=== PATIENT | female | born 1970 | race Caucasian/White ===

== ENCOUNTER 2025-04-07 14:07 | Emergency (ER) | payer MEDICAID, SELFPAY ==
[2025-04-07 14:08] VITALS: BMI 28.3
[2025-04-07 14:42] VITALS: BP 116/72; PULSE 89; RESP 18; TEMP 36.6; O2SAT 99
--- NOTE | 2025-04-07 14:56 | PD.EDDENTL ---
ED Dental RME/HPI General Chief complaint: Dental/Oral/Throat Stated complaint: RIGHT TOOTH PAIN x 4 DAYS Time Seen by Provider: 04/07/25 14:10 Source: patient Arrival date/time: 04/07/25 14:07 54-year-old female with no known medical history presents to the emergency room with a chief complaint of dental tenderness to the back right lower molars x 4 days Mode of arrival: ambulatory Limitations: no limitations Related Data Previous Rx's ?Medication ?Instructions ?Recorded meloxicam 7.5 mg tablet 7.5 mg PO QDAY #14 tabs 07/27/23 clindamycin HCl 300 mg capsule 300 mg PO TID 7 days #21 caps 04/07/25 Allergies Allergy/AdvReac Type Severity Reaction Status Date / Time No Known Allergies Allergy Verified 04/07/25 14:10 Review of Systems Review of Systems Systems Reviewed: All systems reviewed, normal except as documented Constitutional Constitutional: Reports system reviewed and no additional complaints, except as documented, Denies fatigue, Denies fever(s), Denies headache(s) and Denies weakness Eyes Eyes: Reports system reviewed and no additional complaints, except as documented, Denies blurry vision and Denies change in vision ENT Ears, Nose, Mouth, and Throat: Reports system reviewed and no additional complaints, except as documented, Reports dental pain, Denies otalgia, Denies headache(s), Denies nasal congestion, Denies throat swelling and Denies vertigo Cardiovascular Cardiovascular: Reports system reviewed and no additional complaints, except as documented, Denies chest pain, Denies dyspnea and Denies dyspnea on exertion Respiratory Respiratory: Reports system reviewed and no additional complaints, except as documented, Denies chest congestion, Denies cough, Denies dyspnea, Denies dyspnea on exertion and Denies wheezing Gastrointestinal Gastrointestinal: Reports system reviewed and no additional complaints, except as documented, Denies abdominal pain, Denies cramping, Denies nausea and Denies vomiting Genitourinary Genitourinary: Reports system reviewed and no additional complaints, except as documented Musculoskeletal Musculoskeletal: Reports system reviewed and no additional complaints, except as documented and Denies back pain Integumentary/Breasts Skin/Breast: Reports system reviewed and no additional complaints, except as documented and Denies wounds Neurologic Neurologic: Reports system reviewed and no additional complaints, except as documented, Denies confusion, Denies headache(s), Denies lack of coordination, Denies vertigo and Denies weakness Psychiatric Psychiatric: Reports system reviewed and no additional complaints, except as documented, Denies anxiety, Denies confusion, Denies depression, Denies paranoia, Denies suicidal ideation and Denies tactile hallucinations Endocrine Endocrine: Reports system reviewed and no additional complaints, except as documented and Denies fatigue Hematologic/Lymphatic Hematologic/Lymphatic: Reports system reviewed and no additional complaints, except as documented and Denies lymphadenopathy Allergic/Immunologic Allergic/Immunologic: Reports system reviewed and no additional complaints, except as documented, Denies throat swelling, Denies urticaria and Denies wheezing Past Medical History Past Medical History CARDIAC: Negative Cardiac Disorders RESPIRATORY: Negative Asthma GENITOURINARY: Negative Renal Disease ENDOCRINE: Negative Diabetes Mellitus Type 2 HEMATOLOGIC: Negative Sickle Cell Disease Social History SMOKING STATUS: Never smoker ED Exam General Limitations: Present no limitations General appearance: Present alert and in no apparent distress Head Head exam: Present atraumatic Eye Eye exam: Present normal appearance, PERRL and EOMI ENT ENT exam: Present normal exam, normal oropharynx and mucous membranes moist Expanded ENT Exam External ear exam: Present normal external inspection Teeth exam: Present fractured tooth # and dental tenderness # Teeth numbered:  1. Fractured (Per patient she seen the dentist and there is a fracture) and Dental Tenderness Neck Neck exam: Present normal inspection, full ROM and trachea midline Chest Chest inspection: Present normal inspection and symmetric chest wall rise Respiratory Respiratory exam: Present normal lung sounds bilaterally Cardiovascular Cardiovascular exam: Present regular rate, normal rhythm and normal heart sounds Abdominal Exam Abdominal exam: Present soft and normal bowel sounds Extremities Exam Extremities exam: Present normal inspection and full ROM Back Exam Back exam: Present normal inspection and full ROM Neurological Exam Neurological exam: Present alert, oriented X3 and CN II-XII intact Psychiatric Psychiatric exam: Present normal affect and normal mood Skin Skin exam: Present warm, dry, intact and normal color Course Quality Measures none Vital Signs Vital signs: Vital Signs Temperature 98 F 04/07/25 14:42 Pulse Rate 89 04/07/25 14:42 Respiratory Rate 18 04/07/25 14:42 Blood Pressure 116/72 04/07/25 14:42 Pulse Oximetry (%) 99 04/07/25 14:42 Oxygen Delivery Method Room Air 04/07/25 14:42 Dental / Oral MDM Narrative MDM Narrative:: 54-year-old female with no known medical history presents to the emergency room with a chief complaint of dental tenderness to the back right lower molars x 4 days Patient is hemodynamically stable and in no apparent distress Physical examination shows tenderness and pain to the patient's 2nd and 3rd molar on the bottom right side. Tooth #31 and 32. Patient states the last time she went to the dentist they told her she had a fracture on 1 of those tooth. Patient states that she is already called her dentist and made an appointment to be seen. Antibiotics were given to the patient patient states he currently took an ibuprofen which has helped with the pain so she does not need any pain medication Patient was discharged and educated to follow-up with primary care provider in the next 24 to 48 hours and return to the emergency room for any evidence of worsening signs or symptoms Patient data External records reviewed:: [facility] previous records Clinical information provided by:: patient Social determinants that could affect healthcare access:: none Patient has the following chronic illnesses:: No chronic illness How is presenting disease/condition affected by chronic disease/condition?: no chronic disease Evaluation data The following diagnostics were reviewed and interpreted by me:: lab results and radiology exam(s) Lab and/or radiology exams considered but not ordered:: Labs and radiology exams considered and ordered Interpretation Summary: N/A Medications / Prescriptions Medications or Prescriptions considered but not ordered:: Rx given Medication administrations:: Rx given Consultations Consultation(s) initiated? (list below): No Diagnosis Dental Differential Diagnosis: gingival abscess, dental caries, toothache and fracture of tooth Most likely diagnosis given after review of the tests above:: Toothache Admission Indicated Admission indicated?: not indicated Admission Request Was there a request for admission?: No Disposition Plan Disposition Plan: Discharge Discharge Attestation Discharge Attestation: The patient and all family members were given an opportunity to ask questions and understood the discharge instructions. Discharge instructions specifically effects, indications for sooner follow up or return to the emergency department, and the expected course of current diagnosis. Patient condition: Stable Discharge Plan Plan Patient Disposition: HOME (Self Care) Discharge Disposition comment: Stable Prescriptions/Referrals Prescriptions/Med Rec: New clindamycin HCl 300 mg capsule 300 mg PO TID 7 Days Qty: 21 0RF No Action meloxicam 7.5 mg tablet 7.5 mg PO QDAY Qty: 14 0RF Problem List Clinical Impression: Toothache Patient/Caregiver Discharge Instructions Education Materials: ED Dental Pain Additional Instructions: Please follow-up with your dentist in the next 24 to 48 hours Antibiotics sent to your pharmacy please pick them up and take them as indicated For any evidence of worsening signs or symptoms return to the emergency room immediately Print Language: Danish Stand Alone Forms: Alisha Award Info., Patient Portal Info Letter PA/NURSING ATTENDANT Supervising Physician PA/NURSING ATTENDANT Supervising Physician: Dr. Prasad
== END 2025-04-07 15:29 | disposition home or self-care (01) ==
LOC: SERX 15:21
PROVIDERS: Emergency Provider Family Medicine; PCP Physician Assistant Medical
DX: K08.89 Other specified disorders of teeth and supporting structures (principal)
CPT/HCPCS: 99281